=== PATIENT | male | born 1965 | race Caucasian/White ===

== ENCOUNTER 2017-10-03 21:34 | Emergency (ER) | payer OTHER ==
[~2017-10-03] VITALS: Ht 190.5 cm; Wt 117.9 kg
--- NOTE | 2017-10-03 21:54 | NUR ---
DR. ALANIS AT BEDSIDE FOR MSE.
--- NOTE | 2017-10-03 22:45 | NUR ---
Patient discharged to home in stable conditon. Written and verbal after care instructions given. Patient verbalizes understanding of instructions. Pt ambulated out of ER in steady gait. All belongings with pt. VSS. No acute distress noted.
[2017-10-03 22:53] VITALS: BP 155/91
== END 2017-10-03 22:54 | disposition home or self-care (01) ==
LOC: ER 21:36
DX: S62.101A Fracture of unspecified carpal bone, right wrist, initial encounter for closed fracture (principal); E78.5 Hyperlipidemia, unspecified; I10 Essential (primary) hypertension; E11.9 Type 2 diabetes mellitus without complications; W01.0XXA Fall on same level from slipping, tripping and stumbling without subsequent striking against object, initial encounter; Y93.89 Activity, other specified; Y92.89 Other specified places as the place of occurrence of the external cause; Y99.8 Other external cause status
CPT/HCPCS: 73130; A4663

== ENCOUNTER 2021-01-27 15:47 | Inpatient (IN) | payer BC, MEDICAID, OTHER ==
[~2021-01-27] VITALS: Ht 172.7 cm; Wt 91.6 kg
[2021-01-27] MEDS ORDERED: AMLO10TA59 PO (16:40)
[2021-01-27] MEDS ORDERED: NPH,100I SQ (16:40)
[2021-01-27] MEDS ORDERED: TAMS-3 PO (16:40)
[2021-01-27] MEDS ORDERED: CIPR-263 PO (16:40)
[2021-01-27] MEDS ORDERED: PANT40TA2 PO (16:40)
[2021-01-27] MEDS ORDERED: PROP20TA7 PO (16:40)
[2021-01-27] MEDS ORDERED: INSU100V7 SQ (16:40)
[2021-01-27] MEDS ORDERED: ASPI81TA31 PO (16:40)
[2021-01-27] MEDS ORDERED: ALPR0.255 PO (16:40)
[2021-01-27] MEDS ORDERED: ZOLP5TAB2 PO (16:40)
[2021-01-27] MEDS ORDERED: DIPH25CA83 PO (16:40)
[2021-01-27] MEDS ORDERED: ACET-2605 PO (16:40)
[2021-01-27] MEDS ORDERED: HYDR-3980 PO (16:40)
[2021-01-27] MEDS ORDERED: HYDR-4075 PO (16:40)
[2021-01-27 16:53] LABS: HEMATOCRIT 34.9 % (36.7-47.1); MEAN CORPUSCULAR HEMOGLOBIN 31.2 uug (23.8-33.4); PLATELET COUNT (AUTO) 166 K/uL (152-348)
--- NOTE | 2021-01-27 16:59 | NUR ---
Destinee santos in EDM - 01/27/21 at 1659 by MARTHA Patient discharged to home in stable condition. Written and verbal after care instructions given. Patient verbalizes understanding of instructions. Stressed follow up or return to ER for worsening s/s.
[2021-01-27 17:08] LABS: BILIRUBIN,DIRECT 0.2 mg/dL (0.0-0.2); BILIRUBIN,TOTAL 0.8 mg/dL (0.2-1.0); CREATININE 2.1 mg/dL (0.6-1.3); TOTAL PROTEIN, SERUM 7.7 g/dL (6.4-8.2)
[2021-01-27 17:15] LABS: THYROID STIMULATING HORMONE 2.744 mIU/mL (0.358-3.740)
[2021-01-27] MEDS ORDERED: PIPERACILLIN SODIUM/TAZOBACTAM 2.25 G in IV DEXTROSE 5% 50 ML IV ONE (17:30)
[2021-01-27] MEDS ORDERED: PIPERACILLIN/TAZOBACTAM/D5W 50 ML IV ONE (17:52)
--- NOTE | 2021-01-27 18:13 | NUR ---
DR. TOVAR ADMIITED THE PT. TRANSFER TO FLOOR PENDING ON BED AVAILABILITY.
[2021-01-27 18:37] LABS: MAGNESIUM 1.8 mg/dL (1.8-2.4); PHOSPHOROUS 3.2 mg/dL (2.5-4.9)
--- NOTE | 2021-01-27 19:09 | NUR ---
Assumed care of patient from day shift nurse Ollie.Received patient asleep in bed. Appears comfortable. Awaiting to be transfer to telemetry unit. Continue to monitor.
[2021-01-27] MEDS ORDERED: DEXTROSE 50% 50 ML DISP.SYRIN IV PRN (20:15)
[2021-01-27] MEDS ORDERED: ALPRAZOLAM 0.25 MG TABLET PO PRN (20:15)
[2021-01-27] MEDS ORDERED: Medication Not On Formulary EA (Diphenhydramine Hcl (Benadryl) 25 MG) PO SCH (20:15)
[2021-01-27] MEDS ORDERED: HYDROCODONE/APAP 10-325 MG TABLET PO PRN (20:15)
[2021-01-27] MEDS ORDERED: ONDANSETRON 4 MG/2 ML VIAL IV PRN (20:15)
[2021-01-27] MEDS ORDERED: ACETAMINOPHEN 325 MG TABLET PO PRN (20:15)
[2021-01-27 20:45] VITALS: BP 136/78
[2021-01-27] MEDS ORDERED: diphenhydrAMINE 25 MG CAP PO PRN (20:45)
[2021-01-27] MEDS ORDERED: ZOLPIDEM 5 MG TABLET PO PRN (20:45)
--- NOTE | 2021-01-27 20:45 | NUR ---
Pt. admitted to telemetry unit room 315, under care of Dr. Yang. [place] completed. Report was given to DEANA Montelongo.
[2021-01-27] MEDS: DOCUSATE SODIUM 100 MG CAPSULE PO SCH ×2 (21:00→21:33)
[2021-01-27] MEDS: TAMSULOSIN HCL 0.4 MG CAP.SR.24H PO SCH ×2 (21:00→21:33)
[2021-01-27] MEDS ORDERED: DOCUSATE SODIUM 250 MG CAPSULE PO SCH (21:00)
[2021-01-27] MEDS ORDERED: VANCOMYCIN IV 1,250 MG in IV DEXTROSE 5% 250 ML IV SCH (21:00)
[2021-01-27] MEDS: BLOOD SUGAR DIAGNOSTIC 1 EACH STRIP VI SCH (21:33)
[2021-01-27] MEDS: INSULIN REGULAR, HUMAN 300 UNIT/3 ML VIAL SQ PRN (21:39)
[2021-01-27] MEDS ORDERED: VANCOMYCIN IV 1,250 MG in IV DEXTROSE 5% 250 ML IV ONE (22:00)
[2021-01-27] MEDS: PIPERACILLIN/TAZO 2.25 G in IV DEXTROSE 5% 50 ML IV SCH (23:41)
[2021-01-28] VITALS: BP 130/61
[2021-01-28 04:00] VITALS: BP 113/62
--- NOTE | 2021-01-28 05:44 | NUR ---
Pt admitted to Telemetry. Pt is AOx1, not able to make needs known. Does not appear to be in any distress. SR on monitor. IV site intact. Tolerated all medications given. Will endorse to day shift.
[2021-01-28] MEDS: PANTOPRAZOLE SODIUM 40 MG TABLET.DR PO SCH (06:46)
[2021-01-28] MEDS: PIPERACILLIN/TAZO 2.25 G in IV DEXTROSE 5% 50 ML IV SCH ×3 (06:46→19:54)
[2021-01-28] MEDS: BLOOD SUGAR DIAGNOSTIC 1 EACH STRIP VI SCH ×4 (06:55→21:49)
[2021-01-28 07:18] LABS: HEMATOCRIT 31.7 % (36.7-47.1); MEAN CORPUSCULAR HEMOGLOBIN 31.2 uug (23.8-33.4); MEAN CORPUSCULAR VOLUME 91.8 fL (73.0-96.2); PLATELET COUNT (AUTO) 128 K/uL (152-348)
[2021-01-28 07:45] LABS: BILIRUBIN,TOTAL 0.7 mg/dL (0.2-1.0); CREATININE 2.6 mg/dL (0.6-1.3); MAGNESIUM 1.8 mg/dL (1.8-2.4); PHOSPHOROUS 4.8 mg/dL (2.5-4.9); TOTAL PROTEIN, SERUM 6.3 g/dL (6.4-8.2)
[2021-01-28] MEDS: PROTEIN SUPPLEMENT (PROSTAT) 30 ML LIQUID PO SCH ×3 (08:44→17:36)
[2021-01-28] MEDS: ASPIRIN 81 MG TAB.CHEW PO SCH (08:45)
[2021-01-28] MEDS: PROPRANOLOL HCL 20 MG TABLET PO SCH ×2 (08:48→17:38)
[2021-01-28] MEDS: AMLODIPINE 10 MG TABLET PO SCH (08:49)
--- NOTE | 2021-01-28 09:30 | NUR ---
Patient is now more alert. His speech is clear, and able to state his name, where he is at, but does not quite know how he got here/what happened at dialysis. is at bedside, who explains that his high ammonia level always happen after dialysis. is concerned about his liver and his overall condition. Explained to that sometimes when kdiney function is very bad, even though patient is in dialysis, can lead to build up of ammonia, and body cannot excrete from system. Both and patient wants to speak with MD. Explained that MD will make rounds later on that day and will speak with /call her as soon as he can, but no time guaranteed. Pt is stable at this time.
[2021-01-28] MEDS ORDERED: POTASSIUM CHLORIDE 20 MEQ TAB.PRT.SR PO ONE (10:30)
[2021-01-28 10:59] VITALS: BP 112/71
[2021-01-28] MEDS: INSULIN REGULAR, HUMAN 300 UNIT/3 ML VIAL SQ PRN ×3 (11:37→21:18)
--- NOTE | 2021-01-28 13:50 | NUR ---
has been asking about MD, despite continuous explanations that MD saw patient while she stepped out and at this time, he is seeing other patients. continues to ask about liver function, ammonia levels, and is now requesting for medication for itchiness, that patient is reporting to her, but not the RN. Dr Mata, followed up on. Reassured that patient is stable an dis being monitored. Explained to her that when she is not in the room, pt has been sleeping. very adamant about speaking with MD. Dr Mata aware but will call her soon as he can. Patient sleeping at this time, intermittently awake.
[2021-01-28 15:33] VITALS: BP 105/69
[2021-01-28] MEDS ORDERED: VANCOMYCIN IV 1,000 MG in IV DEXTROSE 5% 250 ML IV ONE (18:00)
[2021-01-28 20:00] VITALS: BP 112/60
[2021-01-28] MEDS: TAMSULOSIN HCL 0.4 MG CAP.SR.24H PO SCH (20:13)
[2021-01-28] MEDS: DOCUSATE SODIUM 100 MG CAPSULE PO SCH (20:13)
[2021-01-28] MEDS: LACTULOSE 20 G/30 ML LIQUID UDC PO SCH (21:11)
[2021-01-28] MEDS: RIFAXIMIN 550 MG TABLET PO SCH (21:12)
[2021-01-29] VITALS: BP 111/65
[2021-01-29] MEDS: PIPERACILLIN/TAZO 2.25 G in IV DEXTROSE 5% 50 ML IV SCH ×2 (03:32→12:04)
[2021-01-29 04:00] VITALS: BP 110/64
[2021-01-29] MEDS: PANTOPRAZOLE SODIUM 40 MG TABLET.DR PO SCH (06:10)
[2021-01-29 07:40] LABS: *BILIRUBIN,URIN NEGATIVE (NEGATIVE); *BLOOD, URINE 3+ (NEGATIVE); *CLARITY,URINE CLOUDY (CLEAR); *COLOR,URINE YELLOW (YELLOW); *KETONES,URINE NEGATIVE (NEGATIVE); *UROBILINOGEN,URINE 0.2 E.U./dl (NORMAL); LEUKOCYTE ESTERASE ,URINE 1+ (NEGATIVE); NITRITE, URINE NEGATIVE (NEGATIVE); UGLUCOSE 1+ (NEGATIVE)
--- NOTE | 2021-01-29 08:00 | NUR ---
AWAKE ALERT AND ORIENTED X3 NO SS OF PAIN OR SOB ABLE TO FOLLOW INSTRUCTION WELL, ATE BREAKFAST AND MEDS VOLUNTARILY SR ON MONITOR
[2021-01-29] MEDS: BLOOD SUGAR DIAGNOSTIC 1 EACH STRIP VI SCH ×2 (08:01→11:57)
[2021-01-29] MEDS: PROTEIN SUPPLEMENT (PROSTAT) 30 ML LIQUID PO SCH ×2 (08:01→12:05)
[2021-01-29 08:03] LABS: HEMATOCRIT 29.8 % (36.7-47.1); MEAN CORPUSCULAR HEMOGLOBIN 31.1 uug (23.8-33.4); MEAN CORPUSCULAR VOLUME 92.7 fL (73.0-96.2); PLATELET COUNT (AUTO) 121 K/uL (152-348)
[2021-01-29] MEDS: ASPIRIN 81 MG TAB.CHEW PO SCH (08:16)
[2021-01-29] MEDS: LACTULOSE 20 G/30 ML LIQUID UDC PO SCH (08:16)
[2021-01-29] MEDS: AMLODIPINE 10 MG TABLET PO SCH (08:17)
[2021-01-29] MEDS: PROPRANOLOL HCL 20 MG TABLET PO SCH (08:17)
[2021-01-29] MEDS: RIFAXIMIN 550 MG TABLET PO SCH (08:18)
[2021-01-29] MEDS: INSULIN REGULAR, HUMAN 300 UNIT/3 ML VIAL SQ PRN ×2 (08:20→11:59)
[2021-01-29 08:38] LABS: BILIRUBIN,TOTAL 0.7 mg/dL (0.2-1.0); CREATININE 3.4 mg/dL (0.6-1.3); MAGNESIUM 1.8 mg/dL (1.8-2.4); POTASSIUM 3.7 mmol/L (3.5-5.1); TOTAL PROTEIN, SERUM 6.1 g/dL (6.4-8.2); VANCOMYCIN,RANDOM 20.2 ug/mL (18.0-26.0)
[2021-01-29 10:26] VITALS: BP 101/59
[2021-01-29 11:53] LABS: BACTERIA,URINE NONE SEEN /HPF (NONE SEEN); SQUAMOUS EPITHELIAL CELL,UR FEW /HPF (NONE SEEN)
--- NOTE | 2021-01-29 12:00 | NUR ---
SEEN BY DR WALTON AWAITING ID RECOMMENDATION THEN DISCHARGE.
--- NOTE | 2021-01-29 14:00 | NUR ---
ID CALLED AND SAID NO NEED FOR ANTIBIOTIC FOR HOME USE, DR WALTON NOTIFIED AND SAID OK TO LET PATIENT GO
--- NOTE | 2021-01-29 15:11 | NUR ---
patient in a hurry to go home DR WALTON NOTIFIED AND SAID LET PATIENT GO AND WILL DO DISCHARGE TO FOLLOW
[2021-01-29] MEDS ORDERED: PANT40TA49 PO (15:56)
[2021-01-29] MEDS ORDERED: PROP40TA7 PO (15:56)
[2021-01-29] MEDS ORDERED: RIFA550T PO (15:56)
[2021-01-29] MEDS ORDERED: LACT10SO7 PO (15:56)
== END 2021-01-29 14:30 | disposition home or self-care (01) | DRG 432 ==
LOC: ER 15:49 → TELE3 20:29 → MEDSURG3 01-29 11:52
PROVIDERS: ADMIT Internal Medicine; ATTEND Internal Medicine
DX: K70.40 Alcoholic hepatic failure without coma (principal); N18.6 End stage renal disease; E43 Unspecified severe protein-calorie malnutrition; G92.8 Other toxic encephalopathy; D68.59 Other primary thrombophilia; E87.2 Acidosis; I12.0 Hypertensive chronic kidney disease with stage 5 chronic kidney disease or end stage renal disease; N39.0 Urinary tract infection, site not specified; E11.22 Type 2 diabetes mellitus with diabetic chronic kidney disease; E11.65 Type 2 diabetes mellitus with hyperglycemia; E66.9 Obesity, unspecified; E78.5 Hyperlipidemia, unspecified; E87.6 Hypokalemia; F17.210 Nicotine dependence, cigarettes, uncomplicated; Z99.2 Dependence on renal dialysis; Z79.4 Long term (current) use of insulin; Z20.822 Contact with and (suspected) exposure to COVID-19; K70.30 Alcoholic cirrhosis of liver without ascites; J44.9 Chronic obstructive pulmonary disease, unspecified; Z68.30 Body mass index [BMI] 30.0-30.9, adult; D69.59 Other secondary thrombocytopenia; Z86.19 Personal history of other infectious and parasitic diseases; Z74.09 Other reduced mobility; D64.9 Anemia, unspecified; M89.8X9 Other specified disorders of bone, unspecified site; N40.0 Benign prostatic hyperplasia without lower urinary tract symptoms
CPT/HCPCS: 36415; 70030-TC; 70450; 71045; 76705; 83550; 83605; 83735; 84100; 84443; 85025; 85730; 86803; 87040; 87086; 87806; A4663; G0378; J1815; J2543; J3370; J7040; J7060; Q0163